=== PATIENT | male | born 1970 | race Caucasian/White ===

== ENCOUNTER 2020-04-13 12:36 | Emergency (ER) | payer BC ==
[~2020-04-13] VITALS: Ht 167.6 cm; Wt 83.9 kg
[2020-04-13] MEDS ORDERED: Metoclopramide 10mg/2ml Inj IVP ONE (13:15)
[2020-04-13] MEDS ORDERED: Lidocaine 2% Visc 15ml soln ORAL ONE (13:15)
[2020-04-13] MEDS ORDERED: Dicyclomine HCl 10mg/5ml oral soln ORAL ONE (13:15)
[2020-04-13] MEDS ORDERED: Mylanta II UD 30ml ORAL ONE (13:15)
[2020-04-13] MEDS ORDERED: DiphenhydrAMINE 50mg/ml Inj IVP ONE (13:15)
[2020-04-13 13:39] LABS: BASOPHILS % (AUTO) 0.7 % (0.0-2.0); EOSINOPHILS % (AUTO) 1.2 % (0.0-3.0); HEMATOCRIT 43.9 % (42.0-52.0); HEMOGLOBIN 14.7 G/DL (14.2-18.0); LYMPHOCYTES % (AUTO) 23.1 % (20.0-45.0); MEAN CORPUSCULAR VOLUME 88 FL (80-99); MONOCYTES % (AUTO) 5.9 % (1.0-10.0); NEUTROPHILS % (AUTO) 69.1 % (45.0-75.0); PLATELET COUNT 251 K/UL (150-450); RED BLOOD COUNT 4.98 M/UL (4.70-6.10); RED CELL DISTRIBUTION WIDTH 12.2 % (11.6-14.8)
--- NOTE | 2020-04-13 13:39 | Diagnostic Imaging Report ---
Procedure: XRAY Chest 1v Reason for study: Chest pain Comparison films: None. FINDINGS: A single one view chest is obtained. Vascularity is normal. The lung salvador are clear bilaterally. Cardiac and mediastinal silhouette are within normal limits. CP angles are sharp. The bony thorax appear unremarkable. IMPRESSION: NO ACUTE CARDIOPULMONARY DISEASE.
--- NOTE | 2020-04-13 13:47 | Emergency Room Report ---
History of Present Illness General Chief Complaint: General Complaint Source: Patient Present Illness HPI 49-year-old male here with multiple complaints including 40 pounds of unintentional weight loss, chest pain, back pain, left arm weakness and pain. Patient says the symptoms have been ongoing for 2 months. Says he has had a chronic cough as well. He smokes marijuana but denies any tobacco use, alcohol use, drug use. Has not seen a physician in many years. Denies headaches, vision changes, fevers, chills, palpitations, abdominal pain, nausea, vomiting, diarrhea, dysuria, shortness of breath. Allergies: Coded Allergies: No Known Allergies (Unverified , 04/13/20) COVID-19 Screening Contact w/high risk pt: No Experienced COVID-19 symptoms?: No COVID-19 Testing performed BOW STAPLER: Yes COVID-19 Screening: Negative COVID-19 COVID-19 Testing Source: CLINICAL DATA MANAGER Nursing Documentation-[facility] Past Medical History: No History, Except For Review of Systems All Other Systems: negative except mentioned in HPI Physical Exam Vital Signs Date Time Temp Pulse Resp B/P (MAP) Pulse Ox O2 Delivery O2 Flow Rate FiO2 04/13/20 12:40 98.1 93 16 130/84 (99) 95 Room Air Sp02 EP Interpretation: reviewed, normal General Appearance: no apparent distress, alert, non-toxic Head: normocephalic, atraumatic Eyes: bilateral eye normal inspection, bilateral eye PERRL ENT: hearing grossly normal, normal pharynx, no angioedema, normal voice Neck: full range of motion, supple/symm/no masses Respiratory: chest non-tender, lungs clear, normal breath sounds, speaking full sentences Cardiovascular #1: regular rate, rhythm, no edema Cardiovascular #2: 2+ carotid (R), 2+ carotid (L), 2+ radial (R), 2+ radial (L), 2+ dorsalis pedis (R), 2+ dorsalis pedis (L) Gastrointestinal: normal bowel sounds, non tender, soft, non-distended, no guarding, no rebound Rectal: deferred Genitourinary: normal inspection, no CVA tenderness Musculoskeletal: back normal, normal range of motion, gait/station normal, non- tender Neurologic: alert, motor strength/tone normal, oriented x3, sensory intact, responsive, speech normal Psychiatric: judgement/insight normal, memory normal, mood/affect normal, no suicidal/homicidal ideation Lymphatic: no adenopathy Medical Decision Making Diagnostic Impression: Primary Impression: Encounter for generalized patient complaints ER Course 49-year-old male here with multiple complaints including unintentional weight loss, left arm weakness, back pain. Patient was hemodynamically stable and neurovascular intact in the emergency department. EKG unremarkable. Chest x- ray normal. Currently awaiting results of labs and a CTA chest abdomen pelvis. Signed out to oncoming physician. Last Vital Signs Date Time Temp Pulse Resp B/P (MAP) Pulse Ox O2 Delivery O2 Flow Rate FiO2 04/13/20 12:40 98.1 93 16 130/84 (99) 95 Room Air Tru Peacock M.D. Apr 13, 2020 13:46
[2020-04-13 13:49] LABS: ANION GAP 7 mmol/L (5-15); BLOOD UREA NITROGEN 13 mg/dL (7-18); CALCIUM 8.9 MG/DL (8.5-10.1); CARBON DIOXIDE 28 MMOL/L (21-32); CHLORIDE 103 MMOL/L (98-107); CREATININE 0.8 MG/DL (0.55-1.30); POTASSIUM 4.2 MMOL/L (3.5-5.1); SODIUM 138 MMOL/L (136-145)
[2020-04-13 13:54] LABS: ALANINE AMINOTRANSFERASE 24 U/L (12-78); ALBUMIN 3.5 G/DL (3.4-5.0); ALBUMIN/GLOBULIN RATIO 0.9 (1.0-2.7); ALKALINE PHOSPHATASE 137 U/L (46-116); ASPARTATE AMINO TRANSFERASE 17 U/L (15-37); BILIRUBIN,TOTAL 0.7 MG/DL (0.2-1.0)
--- NOTE | 2020-04-13 13:54 | NUR ---
pt arrived. pt A&Ox4, ambulatory, stable. pt states bilateral lower leg cramping for 4 days, increased unintentional weight loss for 2 months (est 40 lbs)., metallic taste in mouth for 2 months, SOB with exertion for 4 weeks, blurry vision, fatigue, bloating and burping, constipation, epigastric pain. pt denies c/f/vomiting/diarrhea. iv placed, labs sent, pt medicated per pt order (see eMAR). pt placed on portable monitor. ekg performed. nihss performed. gcs 15. pt alert & oriented.
[2020-04-13 14:15] VITALS: BP 116/71
--- NOTE | 2020-04-13 14:53 | NUR ---
1420: pt on monitor.pt bradycardic in 40's. MD anton updated. 1425: pt taken to cT. pt on monitor with generator technician & RN 1445: pt back in room. on monitor.
[2020-04-13 14:54] VITALS: BP 115/71
--- NOTE | 2020-04-13 15:18 | Diagnostic Imaging Report ---
EXAM: CT CTA Chest Abd/Pel w Contrast CLINICAL HISTORY: Chest and abdominal pain. Evaluate for dissection. TECHNIQUE: CT angiogram of the chest, abdomen and pelvis performed with IV contrast. 2-D and 3-D reformations are generated. All CT scans at this facility are performed using dose modulation techniques as appropriate to a performed exam including the following: automated exposure control with adjustment of the mA and/or kV according to patient size. RADIATION DOSE: CTDIvol: 86.1 mGy DLP: 730.4 mGy-cm Dose information generated by the CT scanner is available in PACS. COMPARISON: None FINDINGS: The thoracic and abdominal aorta are normal in caliber without aneurysmal change. No intimal flap or dissection demonstrated. Pulmonary vasculature are grossly unremarkable to the extent visualized. Major visceral branches of the abdomen appear normally patent. The iliac vessels are also patent bilaterally. Lung windows demonstrate mild hazy densities in the dependent aspect of both lungs perhaps some air trapping and atelectasis. Small calcified granuloma right lower lobe. A few small lymph nodes noted in the mediastinum, some partially calcified likely old granulomatous disease. Ancillary findings include a tiny fatty umbilical hernia. Gallbladder is contracted and slightly lobulated. IMPRESSION: NO AORTIC ANEURYSM, INTIMAL FLAP OR DISSECTION.
--- NOTE | 2020-04-13 15:51 | NUR ---
HAND-OFF: Report given to Wolfgang.
[2020-04-13] MEDS ORDERED: DICYCLOMINE HCL10 MG ORAL (17:48)
[2020-04-13] MEDS ORDERED: PROTONIX40 MG ORAL (17:48)
[2020-04-13 19:00] VITALS: BP 115/71
== END 2020-04-13 19:00 | disposition home or self-care (01) ==
LOC: EMR 14:45
DX: Z00.8 Encounter for other general examination (principal); F12.90 Cannabis use, unspecified, uncomplicated
CPT/HCPCS: 36415; 71045; 71275; 74175; 80053; 84443; 84484; 85025; 93005; 96374; 96375; 99284; J1200; J2765; Q9967